=== PATIENT | female | born 1970 | race Caucasian/White ===

== ENCOUNTER 2016-11-28 04:55 | Day surgery (SDC) | payer BC ==
[2016-11-21 13:46] VITALS: BMI 29.7
--- NOTE | 2016-11-26 15:30 | HP ---
[facility] - Chief Complaint Chief Complaint: 46 year old patient with abnormal uterine bleeding. History of Present Illness: This patient developed abnormal uterine bleeding while on vacation in [place] one month ago. The patient visited a animal husbandry teacher there who did a sonogram and told patient she had a polyp of the uterus. Patient is here to investigate this problem. History Source: Patient Limitations to Obtaining History: No Limitations - Past Medical History Allergies/Adverse Reactions: Allergies Allergy/AdvReac Type Severity Reaction Status Date / Time clarithromycin [From Biaxin] Allergy Severe palpitation Verified 11/21/16 13:33 s [employer]: No: Alzheimer's, CVA, Dementia, Migraine, Multiple Sclerosis, Peripheral Neuropathy, Parkinson's, Seizure, Syncope, TIA, Vertigo, Other Cardiovascular: No: AFIB, Aneurysm, Aortic Insufficiency, Aortic Stenosis, CAD, CHF, Deep Vein Thrombosis, HTN, Hyperlipdemia, LA, Mitral Insufficiency, Mitral Stenosis, Murmur, Pulmonary Hypertension, Other Pulmonary: No: Asthma, Bronchitis, Cancer, COPD, O2 Dependent, Pneumonia, Previously Intubated, Pulmonary Embolus, Pulmonary Fibrosis, Sleep Apnea, Other Gastrointestinal: No: Ascites, Cancer, Constipation, Crohn's Disease, Diverticulitis, Diverticulosis, Esophageal Varices, Gastritis, GERD, GI Bleed, Hemorrhoids, Hiatal Hernia, Inflamatory Bowel Disease, Irritable Bowel Disease, Pancreatitis, Peptic Ulcer Disease, Ulcerative Colitis, Other Hepatobiliary: No: Cirrhosis, Cholelithiasis, Cholecystitis, Choledocholithiasis , Hepatitis A, Hepatitis B, Hepatitis C, Other Renal/: No: Renal Failure, Renal Inusuff, BPH, Cancer, Hematuria, Hemodialysis , Neurogenic Bladder, Renal Calculi, UTI, Other Reproductive: No: Ectopic , Endometriosis, Fibroids, PID, Polycystic Ovary Syndrome, Postmenopausal, Other ...LMP: 10/04/16 ...: No ...: 2 ...Para: 2 Heme/Onc: Yes: Anemia. No: B12 Deficiency, Bleeding Disorder, Cancer, Current Chemotherapy, Current Radiation Therapy, Hemochromatosis, Hypercoaguable State, Myeloproliferative Synd, Sickle Cell Disease, Sickle Cell Trait, Thrombocytopenia, Other Infectious Disease: No: AIDS, C-Diff, Herpes Zoster, HIV, MRSA, STD's, Tuberculosis, VREF, Other Musculoskeletal: No: Bursitis, Chronic low back pain, Hemiparesis, Hemiplegia, Osteoarthritis, Paraplegia, Other Rheumatology: No: Fibromyalgia, Gout, Lupus, Rheumatoid Arthritis, Sarcoidosis, Vasculitis, Other ENT: No: Allergic Rhinitis, Sinusitis, Other Endocrine: No: Lufkin's Disease, Argyle's Disease, Diabetes Insipidus, Diabetes Mellitus, Hyperparathyroidism, Hyperthyroidism, Hypothyroidism, Osteopenia, SIADH, Other Dermatology: No: Basal Cell, Cellulitis, Eczema, Melanoma, Psoriasis, Squamous Cell, Other (History of breast reduction, c/s, knee surgery) - Current Medications Current Medications: Home Medications Medication Instructions Recorded Clinea Forrte 1 tab PO DAILY 11/21/16 Meloxicam [Mobic] 15 mg PO DAILY 11/21/16 Satellite Physical Exam - Physical Examination General Appearance: Well Nourished, Well Developed, Alert & Oriented x3 ENT: Clear, No Discharge, No masses Lung: Clear to auscultation Heart: Regular rate & rhythm, Normal S1, Normal S2 Breasts: Soft, Non-Tender, No masses bilaterally Abdomen: Soft, No tenderness, No CVA Extremities: No edema, No tenderness/swelling Pelvic Exam: Within normal limits External Genitalia, Within normal limits Vagina, Within normal limits Cervix, Within normal limits Uterus, Within normal limits [facility] Neu[facility]: Intact, Alert, Oriented Satellite Impression/Plan - Impression/Plan Impression: Abnormal uterine bleeding Operative Procedure: Hysteroscopy with D/C Date to be Performed: 11/28/16
[2016-11-28] MEDS ORDERED: MIDAZOLAM HCL 2 MG/2 ML SINGLE DOSE VIAL ONE (07:58)
[2016-11-28] MEDS ORDERED: PROPOFOL 20 ML ONE (09:07)
[2016-11-28] MEDS ORDERED: KETOROLAC TROMETHAMINE 30 MG/1 ML VIAL IVPUSH ONE (09:27)
[2016-11-28] MEDS ORDERED: oxyCODONE HCL 5 MG TABLET PO PRN (09:27)
[2016-11-28] MEDS ORDERED: ONDANSETRON 4 MG/2 ML VIAL IVPUSH PRN (09:27)
[2016-11-28] MEDS ORDERED: LACTATED RINGERS SOLUTION 1,000 ML IV SCH (09:30)
--- NOTE | 2016-11-28 09:39 | OP ---
DATE OF OPERATION: 11/28/2016 PREOPERATIVE DIAGNOSIS: Abnormal uterine bleeding. POSTOPERATIVE DIAGNOSIS: Abnormal uterine bleeding. OPERATIVE PROCEDURE: Hysteroscopy, dilatation and curettage. SURGEON: Della Granados MD ANESTHESIA: MAC anesthesia. ESTIMATED BLOOD LOSS: Approximately 5 mL. DESCRIPTION OF PROCEDURE: This patient was brought to the operating room, placed in the supine position. She was given anesthesia by the publications sales representative, placed in the lithotomy position. She was prepped and draped in the usual manner for dilatation and curettage hysteroscopy. The patient was examined. The uterus was noted to be normal sized. Adnexa negative. The anterior lip of the cervix was grasped with a tenaculum. The uterus was sounded to 7 cm. Hysteroscopy was performed after the cervix was dilated with Nilesh dilators. Hysteroscopy was performed. The endometrial cavity appeared normal. There were some blood clots attached to the surface of the uterus, to the surface of the endometrium. The endometrial cavity, however, appeared normal. A dilatation and curettage was carried out with a medium-sized curette. A small amount of tissue was obtained. An endometrial curettage was also carried out, and again, a small amount of tissue was obtained. The tissue was sent to Pathology for analysis. The hemostasis was good. The patient tolerated the procedure well, and the patient was then transferred to the recovery room in good condition. DELLA GRANADOS M.D. [id number]
[2016-11-28] MEDS ORDERED: oxyCODONE HCL 5 MG TABLET ONE (09:58)
[2016-11-28] MEDS ORDERED: ONDANSETRON 4 MG/2 ML VIAL ONE (09:58)
[2016-11-28] MEDS ORDERED: ACETAMINOPHEN INJECTION 100 ML IVPB ONE (10:22)
[2016-11-28] MEDS ORDERED: ACETAMINOPHEN 1000 MG/100 ML VIAL (NON FORMULARY) IVPB ONE (10:32)
[2016-11-28 10:52] VITALS: TEMP 98
[2016-11-28 12:31] VITALS: BP 135/84; PULSE 93
--- NOTE | 2016-12-01 12:33 | PATH ---
Surgical Pathology Report Patient Name: MARIELY RAMIREZ [facility]. Rec. #: [id number] /Age/Gender: 1970 (Age: 46) / F Account: [id number] Location: [facility] Taken: 11/28/2016 Received: 11/28/2016 Reported: 12/01/2016 Physicians: Eleazar Granados M.D. Specimen(s) Received A: ENDOMETRIAL CURETTINGS #1 B: ENDOMETRIAL CURETTINGS #2 C: ENDOCERVICAL CURETTINGS Clinical History Abnormal uterine bleeding Final Diagnosis A. ENDOMETRIUM, CURETTING #1: INACTIVE TO ATROPHIC ENDOMETRIUM, AND BENIGN CERVICAL TISSUE. NO ENDOMETRIAL HYPERPLASIA OR CARCINOMA IDENTIFIED. B. ENDOMETRIUM, CURETTING #2: INACTIVE TO ATROPHIC ENDOMETRIUM WITH STROMAL AND GLANDULAR BREAKDOWN, AND BENIGN CERVICAL TISSUE. NO ENDOMETRIAL HYPERPLASIA OR CARCINOMA IDENTIFIED. C. ENDOCERVIX, CURETTING: SCANT BENIGN CERVICAL TISSUE AND CLOTTED BLOOD. Comment: Recommend correlation with clinical findings and follow up as clinically indicated. Electronically Signed Jimmy Banerjee M.D. Gross Description A. Received in formalin, labeled "endometrial curettage #1" are multiple fragments of null-red tissue and measuring 1.5 x 1.0 x 0.2 and cm. in greatest dimension. The specimen is submitted in toto in one cassette. B. Received in formalin, labeled "endometrial curettage #2" is multiple fragments of null-red soft tissue admixed with blood measuring 2.5 x 1.8 x 0.3 and cm. in greatest dimension. The specimen is submitted in toto in one cassette. C. Received in formalin, labeled "endocervical curettage" are multiple fragments of null tissue admixed with mucus and measuring 0.7 x 0.5 x 0.2 cm. in greatest dimension. The specimen is submitted in toto in one cassette. AF/11/28/2016 final/11/28/2016
== END 2016-11-28 13:00 | disposition home or self-care (01) ==
LOC: JASU-SURG 04:55
PROVIDERS: ATTEND Obstetrics & Gynecology
PROC: 0UDB8ZX Extraction of Endometrium, Via Natural or Artificial Opening Endoscopic, Diagnostic (ICD-10-PCS; principal; 2016-11-28 08:30)
DX: N93.9 Abnormal uterine and vaginal bleeding, unspecified (principal)
CPT/HCPCS: 84703; 88305-TC; 94760